=== PATIENT | male | born 1940 | race Caucasian/White ===

== ENCOUNTER 2020-02-06 06:03 | Day surgery (SDC) | payer OTHER, MEDICARE ==
[2020-01-30 13:59] LABS: BASOPHILS # (AUTO) 0.1 X10'3 (0-0.2); BASOPHILS % (AUTO) 0.8 % (0-1); EOSINOPHILS # (AUTO) 0.1 X10'3 (0-0.9); EOSINOPHILS % (AUTO) 0.6 % (0-6); LYMPHOCYTES # (AUTO) 1.9 X10'3 (1.1-4.8); LYMPHOCYTES % (AUTO) 16.1 % (21-51); MEAN CORPUSCULAR HEMOGLOBIN 32.2 PG (27.0-31.0); MEAN CORPUSCULAR HGB CONC 33.5 g/dL (33.0-36.5); MEAN PLATELET VOLUME 7.3 FL (7.4-10.4); MONOCYTES # (AUTO) 0.9 X10'3 (0-0.9); NEUTROPHILS # (AUTO) 8.7 X10'3 (1.8-7.7); NEUTROPHILS % (AUTO) 74.5 % (42-75); PRE OP HEMATOCRIT 48.9 % (42.0-52.0); PRE OP HEMOGLOBIN 16.4 g/dL (14.0-17.9); PRE OP PLATELET COUNT 215 X10'3 (140-440); RED BLOOD COUNT 5.09 X10'6 (4.70-6.10); RED CELL DISTRIBUTION WIDTH 14.1 % (11.5-14.5)
[2020-01-30 14:10] LABS: PRE OP INR 1.1 INR
[2020-01-30 14:11] LABS: ALBUMIN 4.3 G/DL (3.4-5.0); ALBUMIN/GLOBULIN RATIO 1.3 (1.1-1.5); ALKALINE PHOSPHATASE 86 IU/L (46-116); BLOOD UREA NITROGEN 25 MG/DL (7-18); BUN/CREATININE RATIO 15.5 (5.4-32.0); CALCIUM 9.2 MG/DL (8.5-10.1); CHLORIDE 105 MMOL/L (99-107); CREATININE 1.61 MG/DL (0.60-1.10); PRE OP ALT 55 U/L (30-65); PRE OP ANION GAP 6 (8-16); PRE OP AST 24 U/L (10-37); PRE OP BILIRUB, TOTAL 1.1 MG/DL (0.0-1.0); PRE OP GLUCOSE 120 MG/DL (70-104); PRE OP POTASSIUM 4.4 MMOL/L (3.4-5.1); PRE OP SODIUM 141 MMOL/L (135-145); TOTAL CARBON DIOXIDE 29.6 MMOL/L (24-32); TOTAL PROTEIN 7.6 G/DL (6.4-8.2); eGFR 42 ML/MIN
[2020-01-30 14:21] LABS: HEMOGLOBIN A1C 5.9 % (4.5-6.2)
[~2020-02-06] VITALS: Ht 172.7 cm; Wt 87.5 kg
[2020-02-06] VITALS (20 sets, daily range): BP systolic 97–124; BP diastolic 43–73
[~2020-02-06 06:03] MED LIST: AMLO10TA53 PO; APIX5TAB3 PO; CHOL500050 PO; CLOP75TA33 PO; DIGO-20 PO; DOCUMENT DATE & TIME OF BETA-BLOCKER PO ONE; FAMO-49 PO; FLO0.4C PO; FURO-150 PO; LANS15CA18 PO; LISI2.5T2 PO; METF500T PO; METO100T7 PO; POTA-82 PO; TRAM50TA2 PO; acetaminophen 325mg tablet PO ONE; ceFAZolin 2gm in dextrose, iso 50 ML IV ONE; celeCOXIB 100mg capsule PO ONE; famotidine 10mg tablet PO ONE; gabapentin 300mg capsule PO ONE; metoclopramide 5 mg/ml inj IV ONE; oxyCODONE SR 10mg (sust. release) tab -2 tabs (20mg) PO ONE; tranexamic acid 1gm/0.7% sal. 100 ML IV ONE
[2020-02-06] MEDS ORDERED: LIDOcaine 1% (10mg/ml) 2ml vial ONE (06:31)
[2020-02-06] MEDS ORDERED: ondansetron/PF 4mg/2ml inj IV PRN ×2 (06:35→08:35)
[2020-02-06] MEDS ORDERED: glucagon, human recombinant 1mg kit SUBCUT PRN (06:35)
[2020-02-06] MEDS ORDERED: dextrose 50%-water 50ml dispensing syringe IV PRN ×2 (06:35)
[2020-02-06] MEDS ORDERED: dextrose ORAL solution 15 GM/59 ML bottle PO PRN ×2 (06:35)
[2020-02-06] MEDS ORDERED: acetaminophen 325mg tablet PO PRN (06:35)
[2020-02-06] MEDS ORDERED: magnesium hydroxide 30ml (MOM) UD suspension PO PRN (06:35)
[2020-02-06] MEDS ORDERED: potassium cl 20mEq in 1/2 NS 1,000 ML IV SCH (06:35)
[2020-02-06] MEDS ORDERED: MESSAGE TO PHARMACY PO ONE (06:35)
[2020-02-06] MEDS ORDERED: bisacodyl 10mg suppository rectal RC PRN (06:35)
[2020-02-06] MEDS ORDERED: insulin Lispro (HumaLOG) vial - multi-dose SQ SCH (06:35)
[2020-02-06] MEDS ORDERED: HYDROcodone/acetaminophen 10/325mg tab PO PRN (06:35)
[2020-02-06] MEDS ORDERED: HYDROmorphone 1 mg/ml syringe IV PRN (06:35)
[2020-02-06] MEDS ORDERED: diphenhydrAMINE 25mg capsule PO PRN ×2 (06:35)
[2020-02-06] MEDS ORDERED: HYDROmorphone inj. 0.5 MG/0.5 ML DISP.SYRIN IV PRN ×3 (06:35→08:35)
[2020-02-06] MEDS: ringers solution, lacted 1,000 ML IV SCH ×2 (06:43→12:02)
[2020-02-06] MEDS ORDERED: ROPIVAcaine inj 250 MG, CloNIDine/PF inj 80 MCG, epiNEPHrine inj 0.5 MG in normal salin... IV ONE (07:40)
[2020-02-06] MEDS ORDERED: vancomycin 1,000mg inj ONE (07:44)
[2020-02-06] MEDS ORDERED: vancomycin/NS 1 GM ADD-VANTAGE 250 ML IV SCH ×2 (08:00→20:00)
[2020-02-06] MEDS ORDERED: non-formulary drug (Potassium Chloride 1 TAB) PO SCH (08:00)
[2020-02-06] MEDS ORDERED: non-formulary drug (Famotidine 1 TAB) PO SCH (08:00)
[2020-02-06] MEDS ORDERED: ceFAZolin 1GM/D5W- ADD-VANTAGE 50 ML IV SCH (08:00)
[2020-02-06] MEDS ORDERED: gabapentin 300mg capsule PO SCH (08:00)
[2020-02-06] MEDS ORDERED: non-formulary drug (Amlodipine Besylate 1 TAB) PO SCH (08:00)
[2020-02-06] MEDS ORDERED: digoxin 125mcg (0.125mg) tablet PO SCH (08:00)
[2020-02-06] MEDS ORDERED: lisinopril 2.5mg tablet PO SCH (08:00)
[2020-02-06] MEDS ORDERED: METOPROLOL SUCCINATE PO SCH (08:00)
[2020-02-06] MEDS ORDERED: fentaNYL/PF 50MCG/1 ML 2ML syringe ONE (08:35)
[2020-02-06] MEDS ORDERED: acetaminophen 1,000mg/100ml IV 100 ML IV PRN (08:35)
[2020-02-06] MEDS ORDERED: proCHLORperazine 10 MG/2 ml inj IV PRN (08:35)
[2020-02-06] MEDS ORDERED: morphine 4 MG/ML inj SYRINge IV PRN (08:35)
[2020-02-06] MEDS ORDERED: labetalol 20mg/4ml (5mg/ml) syringe IV PRN (08:35)
[2020-02-06] MEDS ORDERED: morphine 2 MG/ML inj. syringe IV PRN (08:35)
[2020-02-06] MEDS ORDERED: ringers solution, lacted 1,000 ML IV SCH (08:35)
[2020-02-06] MEDS ORDERED: midazolam 2 mg/2 ml injection ONE (08:35)
[2020-02-06] MEDS ORDERED: meperidine/PF 25mg/ml syringe IV PRN (08:35)
[2020-02-06] MEDS ORDERED: hydrALAZINE 20mg/ml inj. IV PRN (08:35)
[2020-02-06] MEDS ORDERED: propofol inj 20 ML IV ONE ×2 (08:58)
[2020-02-06] MEDS ORDERED: ePHEDrine 50MG/ML INJ. ONE (08:58)
[2020-02-06] MEDS ORDERED: phenylephrine 10mg/ml inj. ONE (09:04)
[2020-02-06] MEDS ORDERED: 0.9 % SODIUM CHLORIDE 10 ML VIAL ONE ×2 (09:34→09:35)
[2020-02-06] MEDS ORDERED: albumin (Human) 5% 250ml 250 ML IV ONE (09:35)
--- NOTE | 2020-02-06 09:58 | NUR ---
RECEIVED FROM OR VIA BED WITH OHTF ACCOMPANIED BY ANESTHESIOLOGIST DR OZUNA, REPORT GIVEN
--- NOTE | 2020-02-06 09:58 | NUR ---
PT DROWSY BUT AROUSES EASILY AND DENIES PAIN AT THIS TIME. SPINAL SENSATION AT UMBILICUS. PPULSES PALPABLE , BRISK CAP REFILL, SKIN PINK AND WARM, ABD SOFT, VSS. 18 GAUGE PIV L WRIST PATENT AND RUNNING LR AT 100 ML/HR. MIRIAM DRESSING L HIP CDI WITH L KNEE IMMOBILIZER IN PLACE. TELE NUMBER 12 PLACED AND SCDS ON, RESTING COMFORTABLY.
--- NOTE | 2020-02-06 11:17 | NUR ---
Received report from RAÚL Ramos. Awaiting patient arrival.
--- NOTE | 2020-02-06 11:18 | NUR ---
PT AWAKE AND ALERT AND DENIES PAIN AT THIS TIME. SPINAL SENSATION AT UMBILICUS. PPULSES PALPABLE , BRISK CAP REFILL, SKIN PINK AND WARM, ABD SOFT, VSS. 18 GAUGE PIV L WRIST PATENT AND RUNNING LR AT 100 ML/HR. MIRIAM DRESSING L HIP CDI WITH L KNEE IMMOBILIZER IN PLACE. TELE NUMBER 12 PLACED AND SCDS ON, RESTING COMFORTABLY.TRANSPORTED VIA BED WITH OHFT ACCOMPANIED BY MYSELF, REPORT GIVEN, LEFT IN CARE OF ADIS OLSEN.
--- NOTE | 2020-02-06 11:20 | NUR ---
Received report from RAÚL Ramos. Patient arrived to floor. VSS.
[2020-02-06] MEDS: potassium cl 20mEq in 1/2 NS 1,000 ML IV SCH ×2 (12:30→19:42)
[2020-02-06] MEDS: gabapentin 300mg capsule PO SCH ×2 (13:59→22:29)
[2020-02-06] MEDS: HYDROcodone/acetaminophen 10/325mg tab PO PRN ×2 (13:59→19:41)
[2020-02-06] MEDS ORDERED: tranexamic acid 1gm/0.7% sal. 100 ML IV ONE (15:30)
[2020-02-06] MEDS: ceFAZolin 1GM/D5W- ADD-VANTAGE 50 ML IV SCH (17:22)
--- NOTE | 2020-02-06 18:09 | NUR ---
attempted to call PAS unit regarding patients missing FWW. no answer. passed message to noc shift.
--- NOTE | 2020-02-06 18:10 | NUR ---
Problems reprioritized. Patient report given, questions answered & plan of care reviewed with RAÚL Kothari.
--- NOTE | 2020-02-06 18:20 | NUR ---
Patient in room ORTHO 4022. I have received report from Maria Alejandra OLSEN and had the opportunity to ask questions and assume patient care.
--- NOTE | 2020-02-06 19:30 | NUR ---
Called Pass unit & PACU to find FWW, no answer. Will attempt to find when available to leave floor
[2020-02-06] MEDS: ascorbic acid 500mg tablet PO SCH (19:39)
[2020-02-06] MEDS: famotidine 20mg tablet PO SCH (19:39)
[2020-02-06] MEDS: apixaban 5mg tablet PO SCH (19:41)
[2020-02-06] MEDS ORDERED: sennosides 8.6mg tablet PO SCH (21:00)
[2020-02-07] MEDS: ceFAZolin 1GM/D5W- ADD-VANTAGE 50 ML IV SCH (01:01)
[2020-02-07] MEDS: HYDROcodone/acetaminophen 10/325mg tab PO PRN ×4 (01:02→15:24)
[2020-02-07 02:00] VITALS: BP 108/62
[2020-02-07] MEDS: potassium cl 20mEq in 1/2 NS 1,000 ML IV SCH ×2 (04:30→12:30)
[2020-02-07 05:50] VITALS: BP 129/70
[2020-02-07 06:00] LABS: BASOPHILS % (AUTO) 0.6 % (0-1); EOSINOPHILS # (AUTO) 0.3 X10'3 (0-0.9); EOSINOPHILS % (AUTO) 3.6 % (0-6); HEMOGLOBIN 13.5 g/dl (14.0-17.9); LYMPHOCYTES # (AUTO) 1.5 X10'3 (1.1-4.8); LYMPHOCYTES % (AUTO) 20.6 % (21-51); MEAN CORPUSCULAR HEMOGLOBIN 33.1 PG (27.0-31.0); MEAN CORPUSCULAR HGB CONC 33.8 g/dL (33.0-36.5); MEAN CORPUSCULAR VOLUME 97.7 FL (78-98); MEAN PLATELET VOLUME 7.5 FL (7.4-10.4); MONOCYTES # (AUTO) 0.8 X10'3 (0-0.9); MONOCYTES % (AUTO) 10.4 % (2-12); NEUTROPHILS # (AUTO) 4.8 X10'3 (1.8-7.7); NEUTROPHILS % (AUTO) 64.8 % (42-75); PLATELET COUNT 147 X10'3 (140-440); RED CELL DISTRIBUTION WIDTH 14.4 % (11.5-14.5); WHITE BLOOD COUNT 7.5 X10'3 (4.5-11.0)
[2020-02-07 06:18] LABS: ANION GAP 6 (8-16); CHLORIDE 110 MMOL/L (99-107); POTASSIUM 4.6 MMOL/L (3.5-5.1); SODIUM 143 MMOL/L (135-145); TOTAL CARBON DIOXIDE 27.4 MMOL/L (24-32)
--- NOTE | 2020-02-07 06:46 | NUR ---
Problems reprioritized. Patient report given, questions answered & plan of care reviewed with Natali OLSEN. .
--- NOTE | 2020-02-07 07:13 | NUR ---
Patient in room ORTHO 4017. I have received report from Saniya OLSEN and had the opportunity to ask questions and assume patient care. Addendum: 02/07/20 at 0715 by Natali Narayanan RN [id number]
--- NOTE | 2020-02-07 07:23 | NUR ---
Pt. refused Accu checks. States he usually does not do it at home and his blood sugar is well managed. Addendum: 02/07/20 at 0724 by Harriet PIZANO Amended: Links added.
[2020-02-07] MEDS ORDERED: potassium Cl 20 mEq SR tablet PO SCH (08:00)
[2020-02-07] MEDS: gabapentin 300mg capsule PO SCH ×2 (08:00→13:38)
[2020-02-07] MEDS ORDERED: lisinopril 2.5mg tablet PO SCH (08:00)
[2020-02-07] MEDS ORDERED: tamsulosin 0.4mg capsule PO SCH (08:00)
[2020-02-07] MEDS ORDERED: furosemide 20MG tablet PO SCH (08:00)
[2020-02-07] MEDS ORDERED: digoxin 125mcg (0.125mg) tablet PO SCH (08:00)
[2020-02-07] MEDS ORDERED: lansoprazole 15mg solutab PO SCH (08:00)
[2020-02-07] MEDS ORDERED: metoprolol succinate 25mg (24-HOUR) SR. Tablet PO SCH (08:00)
[2020-02-07] MEDS ORDERED: clopidogrel 75mg tablet PO SCH (08:00)
[2020-02-07] MEDS ORDERED: amLODIPine 5mg tablet PO SCH (08:00)
[2020-02-07] MEDS ORDERED: multivitamins, therapeutics tablet PO SCH (08:00)
[2020-02-07] MEDS: ascorbic acid 500mg tablet PO SCH (08:59)
[2020-02-07] MEDS: apixaban 5mg tablet PO SCH (08:59)
[2020-02-07] MEDS: famotidine 20mg tablet PO SCH (08:59)
[2020-02-07 10:00] VITALS: BP 162/64
--- NOTE | 2020-02-07 13:41 | NUR ---
Joint Replacement Consult: Pt s/p ESHA-L PO 100% avg carb controlled meals meeting needs. LBM 02/04 w/ no GI symptoms noted at this time. Hx T2DM A1C less than 7 and not appropriate for ed at this time. Written high protein ed w/ RD contact information placed in pt chart. Will continue to monitor for additional protein needs post-op. Addendum: 02/07/20 at [address] Amended: Links added.
--- NOTE | 2020-02-07 15:15 | NUR ---
Pt. educated on discharge, post-op hip arthroplasty, follow-up and exercises.
--- NOTE | 2020-02-07 15:30 | NUR ---
Pt. IV removed and discharged home. Picked up by nephew. Nephew educated on discharge orders.
--- NOTE | 2020-02-07 17:45 | NUR ---
Student documentation: I have reviewed and agree with all interventions, assessments performed and documented by PAM LOPEZ. Student Medication Administration: For this medication-pass time frame, all medication were reviewed, dispensed, administered and documented per hospital policy by PAM LOPEZ.
[2020-02-07] MEDS ORDERED: celeCOXIB 100mg capsule PO SCH (20:00)
== END 2020-02-07 16:00 | disposition home or self-care (01) ==
LOC: PAS 06:03 → ORTHO 4S 06:35 → UNDOADMOB 06:35 → ORTHO 4S 16:00 → UNDODISOB 02-07 16:00 → PAS 02-07 16:00
PROVIDERS: ATTEND Orthopaedic Surgery
PROC: 0SRB06A Replacement of Left Hip Joint with Oxidized Zirconium on Polyethylene Synthetic Substitute, Uncemented, Open Approach (ICD-10-PCS; principal; 2020-02-06 08:23)
DX: M16.12 Unilateral primary osteoarthritis, left hip (principal); M25.552 Pain in left hip; D62 Acute posthemorrhagic anemia; Z87.891 Personal history of nicotine dependence
CPT/HCPCS: 27130; 36415; 71046; 72170; 80051; 80053; 82948; 83036; 85025; 85610; 85730; 86885; 86900; 86901; 87081; 87635; 97110; 97116; 97161; C1776; J0690; J1815; J2001; J2250; J2370; J2704; J2765; J3010; J3370; J7120; P9045; A7000; G0378; J3480